=== PATIENT | male | born 1960 ===

== ENCOUNTER 2024-10-29 12:29 | Emergency (ER) | payer SELFPAY ==
[2024-10-29] MEDS: Lidocaine 1% 5 ML VIAL INJECT ONE (13:00)
[2024-10-29] MEDS: Bacitracin Oint 1 GM U/D Packet TOP ONE (13:10)
== END 2024-10-29 13:15 | disposition home or self-care (01) ==
LOC: LB.ED 12:29
DX: S60.452A Superficial foreign body of right middle finger, initial encounter (principal); W45.8XXA Other foreign body or object entering through skin, initial encounter; Y93.89 Activity, other specified
CPT/HCPCS: 99283; J2003